=== PATIENT | male | born 1980 | race African-American/Black ===

== ENCOUNTER 2017-09-13 20:42 | Emergency (ER) | payer BC, OTHER ==
[2017-09-13] MEDS ORDERED: Ketorolac 60 MG/2 ML SDV IM ONE (21:11)
--- NOTE | 2017-09-13 21:11 | EDM.PDOC ---
ED HPI GENERAL MEDICAL PROBLEM - General Chief Complaint: Back Pain or Injury Stated Complaint: HURT BACK AND ELBOW Time Seen by Provider: 09/13/17 20:54 Source of Information: Reports: Patient History Limitations: Reports: No Limitations - History of Present Illness INITIAL COMMENTS - FREE TEXT/NARRATIVE: HISTORY AND PHYSICAL: History of present illness: 37-year-old male presenting in numerous department with chief complaint of lower back pain after fall. Patient states that he was standing with his hands bracing himself on a fence behind him talking to a friend who is also in the emergency department. States that fence gave way and both fell approximately 3-4 feet off a ledge. Patient states he primarily landed on his butt then hit the back of his head on the ground. He did not lose consciousness and has not had any kind of head or neck pain. He did scrape the back of his right elbow. He is complaining primarily of lumbar pain that radiates down into his right lower extremity not past the knee. Denies any bowel or bladder incontinence. Denies any chest pain, palpitations, shortness of breath, syncopal episodes, focal neurologic deficits. Patient is generally healthy and only takes Zantac for occasional GERD. Review of systems: As per history of present illness and below otherwise all systems reviewed and negative. Past medical history: As per history of present illness and as reviewed below otherwise noncontributory. Surgical history: As per history of present illness and as reviewed below otherwise noncontributory. Social history: No reported history of drug or alcohol abuse. Family history: As per history of present illness and as reviewed below otherwise noncontributory. Physical exam: HEENT: Atraumatic, normocephalic, pupils reactive, negative for conjunctival pallor or scleral icterus, mucous membranes moist, throat clear, neck supple, nontender, trachea midline. Lungs: Clear to auscultation, breath sounds equal bilaterally, chest nontender. Heart: S1S2, regular, negative for clicks, rubs, or JVD. Abdomen: Soft, nondistended, nontender. Negative for masses or hepatosplenomegaly. Negative for costovertebral tenderness. Pelvis: Stable nontender. Genitourinary: Deferred. Rectal: Deferred. Extremities: Atraumatic, negative for cords or calf pain. Neurovascular unremarkable. Neuro: Awake, alert, oriented. Cranial nerves II through XII unremarkable. Cerebellum unremarkable. Motor and sensory unremarkable throughout. Exam nonfocal. Back: Tenderness to palpation lupe T10-S1 as well as paraspinal primarily on right with no step-off or focal neurlogic deficits Diagnostics: Thoracic, lumbar x-ray Therapeutics: 60 mg IM Toradol, Tdap Impression: Lumbar contusion Plan: Lumbar as well as thoracic x-rays were negative for any acute osseous abnormalities. Patient had good relief with IM Toradol. He was discharged in good condition with instructions to take Tylenol or ibuprofen for pain and inflammation. He should also rest the area as well as use ice. I did give him a prescription for Flexeril for muscle spasms. I also recommended that he follow- up with a primary care physician and gave him information on that. If he has any new or worse symptoms he should return to emergency department immediately. Lower Back Pain Score (Numeric/FACES): 9 - Related Data Allergies Allergy/AdvReac Type Severity Reaction Status Date / Time No Known Allergies Allergy Verified 09/13/17 21:07 Home Meds: Home Meds Ranitidine [Zantac] 75 mg PO BID PRN 09/13/17 [History] Past Medical History - Past Health History Medical/Surgical History: Denies Medical/Surgical History ED ROS GENERAL - Review of Systems Review Of Systems: ROS reveals no pertinent complaints other than HPI. ED EXAM, GENERAL - Physical Exam Exam: See Below Course - Vital Signs Last Recorded V/S: Last Vital Signs Temp 98.3 F 09/13/17 21:08 Pulse 83 09/13/17 21:08 Resp 16 09/13/17 21:08 BP 121/84 09/13/17 21:08 Pulse Ox 98 09/13/17 21:08 - Orders/Labs/Meds Orders: Active Orders 24 hr Category Date Time Status Vaccines to be Administered [RC] PER UNIT ROUTINE Care 09/13/17 22:09 Active Lumbar Spine 2 or 3V [CR] Stat Exams 09/13/17 21:12 Taken Thoracic Spine 3V [CR] Stat Exams 09/13/17 21:12 Taken Meds: Medications Discontinued Medications Generic Name Dose Route Start Last Admin Trade Name Freq PRN Reason Stop Dose Admin Diphtheria/Tetanus/Acell Pertussis 0.5 ml 09/13/17 22:09 Adacel IM 09/13/17 22:10 .ONCE ONE Ketorolac Tromethamine 60 mg 09/13/17 21:11 09/13/17 22:05 Toradol IM 09/13/17 21:12 60 mg ONETIME ONE Administration Departure - Departure Time of Disposition: 22:19 Disposition: Home, Self-Care 01 Condition: Good Clinical Impression: Lumbar contusion Qualifiers: Encounter type: initial encounter Qualified Code(s): S30.0XXA - Contusion of lower back and pelvis, initial encounter - Discharge Information Referrals: PCP,None [Primary Care Provider] - Forms: ED Department Discharge Additional Instructions: My general discharge The following information is given to patients seen in the emergency department who are being discharged to home. This information is to outline your options for follow-up care. We provide all patients seen in our emergency department with a follow-up referral. The need for follow-up, as well as the timing and circumstances, are variable depending upon the specifics of your emergency department visit. If you don't have a primary care physician on staff, we will provide you with a referral. We always advise you to contact your personal physician following an emergency department visit to inform them of the circumstance of the visit and for follow-up with them and/or the need for any referrals to a consulting specialist. The emergency department will also refer you to a specialist when appropriate. This referral assures that you have the opportunity for follow-up care with a specialist. All of these measure are taken in an effort to provide you with optimal care, which includes your follow-up. Under all circumstances we always encourage you to contact your private physician who remains a resource for coordinating your care. When calling for follow-up care, please make the office aware that this follow-up is from your recent emergency room visit. If for any reason you are refused follow-up, please contact the [facility] Emergency Department at and asked to speak to the emergency department charge nurse. [facility] [address] [place] [id number] [address] Please call 1 of the numbers above to schedule a appointment for follow-up from the ER and to establish care with a primary care provider. May take Tylenol for pain. Rest the area and use ice 15 minutes on 15 minutes off. Take Flexeril as prescribed. Return to the emergency department if any new or worsening symptoms. - My Orders Last 24 Hours: My Active Orders 09/13/17 21:12 Lumbar Spine 2 or 3V [CR] Stat Thoracic Spine 3V [CR] Stat 09/13/17 22:09 Vaccines to be Administered [RC] PER UNIT ROUTINE - Assessment/Plan Last 24 Hours: My Active Orders 09/13/17 21:12 Lumbar Spine 2 or 3V [CR] Stat Thoracic Spine 3V [CR] Stat 09/13/17 22:09 Vaccines to be Administered [RC] PER UNIT ROUTINE
[2017-09-13] MEDS ORDERED: Diphtheria,Pertussis(Acell),Tetanus Vaccine 0.5 ML Syringe IM ONE (22:09)
--- NOTE | 2017-09-14 15:22 | CR ---
EXAM DATE: 09/13/17 PATIENT'S AGE: 37 Patient: YULISSA PINEDA Facility: [place], [place] Site . Site : 1980 Study: XRay Spine Lumbar [id number]/3/2018 9:55:24 PM Ordering Physician: Cornelio Cox Final Report: INDICATION: Fall from <5ft, general back pain since TECHNIQUE: Lumbar spine 3 views. COMPARISON: None. FINDINGS: Bones: Alignment is normal. No fractures or bone lesions. Joint spaces: Disc spaces are normal. Facet joints are normal. Soft tissues: Negative. IMPRESSION: Negative lumbar spine. Dictated by: Ludin Dent MD @ 09/13/2017 22:11:22 (Electronic Signature) Report Signed by Proxy. JOSLYN
--- NOTE | 2017-09-14 15:23 | CR ---
EXAM DATE: 09/13/17 PATIENT'S AGE: 37 Patient: YULISSA PINEDA Facility: [place], [place] Site . Site : 1980 Study: XRay Spine Thoracic [id number]/3/2018 9:58:40 PM Ordering Physician: Cornelio Cox Final Report: INDICATION: fall TECHNIQUE: Thoracic spine 3 views. COMPARISON: None. FINDINGS: Bones: Alignment is normal. No fractures or bone lesions. Joint spaces: Disc spaces are normal. Facet joints are normal. Soft tissues: Negative. IMPRESSION: Negative thoracic spine. Dictated by: Ludin Dent MD @ 09/13/2017 22:09:05 (Electronic Signature) Report Signed by Proxy. JOSLYN
== END 2017-09-13 22:28 | disposition home or self-care (01) ==
LOC: MW.ED 20:42
DX: S30.0XXA Contusion of lower back and pelvis, initial encounter (principal); W17.89XA Other fall from one level to another, initial encounter; Z79.899 Other long term (current) drug therapy
CPT/HCPCS: 72072; 72100; 90471; 90715; 96372; 99283; J1885

== ENCOUNTER 2020-01-27 10:28 | Emergency (ER) | payer BC, OTHER ==
--- NOTE | 2020-01-27 10:43 | EDM.PDOC ---
ED HPI GENERAL MEDICAL PROBLEM - General Stated Complaint: BODY ACHES/DIFFICULTY BREATHING/CHEST PAIN Time Seen by Provider: 01/27/20 10:41 Source of Information: Reports: Patient History Limitations: Reports: No Limitations - History of Present Illness INITIAL COMMENTS - FREE TEXT/NARRATIVE: HISTORY AND PHYSICAL: History of present illness: Patient is a 39-year-old male who presents to the emergency room with complaints of a 1 week history of cough, intermittent shortness of breath, body aches and subjective fevers. He reports he is here to "get a checkup" as he is concerned his symptoms have not been alleviated. Currently does have concerns of COVID-19 as he has multiple roommates and exposures while at work. He also states he is not able to taste his food but denies any change in oral intake. Patient denies any headache, change in vision, syncope or near syncope. Denies any chest pain, back pain, abdominal pain, nausea, vomiting, diarrhea, constipation or dysuria. Has not noted any blood in urine or stool. Review of systems: As per history of present illness and below otherwise all systems reviewed and negative. Past medical history: As per history of present illness and as reviewed below otherwise noncontributory. Surgical history: As per history of present illness and as reviewed below otherwise noncontributory. Social history: See social history for further information Family history: As per history of present illness and as reviewed below otherwise noncontributory. Physical exam: General: Well developed and well nourished. Alert and orientated x 3. Nontoxic in appearance and in no acute distress. Vital signs are stable and have been reviewed by me. Nursing notes were reviewed. HEENT: Atraumatic, normocephalic, pupils equal and reactive bilaterally, ne gative for conjunctival pallor or scleral icterus, mucous membranes moist, TMs normal bilaterally, throat clear, neck supple, nontender, trachea midline. No drooling or trismus noted. No meningeal signs. No hot potato voice noted. Lungs: Clear to auscultation, breath sounds equal bilaterally, chest nontender. Normal work of breathing, no accessory muscles used. Heart: S1S2, regular rate and rhythm without overt murmur Abdomen: Soft, nondistended, nontender. Negative for masses or hepatosplenomegaly. Negative for costovertebral tenderness. Skin: Intact, warm, dry. No lesions or rashes noted. Hematologic: No petechiae or purpra. Mucosa appropriate color and normal nail bed color and refill. Extremities: Atraumatic, moves all extremities per self without difficulty or deficits, negative for cords or calf pain. Neurovascular unremarkable. Neuro: Awake, alert, oriented. Cranial nerves II through XII unremarkable. Cerebellum unremarkable. Motor and sensory unremarkable throughout. Exam nonf ocal. Psychiatric: Mood and affect are appropriate. Normal thought process. Answering questions appropriately. Notes: Chest x-ray is unremarkable. Tested positive for COVID-19. I have spoken with the patient/caregiver and discussed today's findings, in addition to providing specific details for plan of care. Reassessment at the time of disposition demonstrates that the patient is in no acute distress. The patient has remained stable throughout the entire ED visit and is without objective evidence for acute process requiring urgent intervention or hospitalization. The patient is stable for discharge, counseling was provided and we discussed in great detail signs and symptoms that would prompt them to return to the Emergency Department. Medication, follow up and supportive care measures were reviewed and discussed. Voices understanding and is agreeable to plan of care. Denies any further questions or concerns at this time. Diagnostics: Chest x-ray, coronavirus Therapeutics: None Prescription: None Impression: COVID-19 Plan: 1. Your COVID-19 screening is positive. That means you do have the coronavirus and are considered contagious. Your vital signs and oxygen saturation are well enough that you were able to monitor your symptoms at home. Continue to monitor for trouble breathing, new confusion or inability to arouse, bluish lips or face or any of the other symptoms we discussed -if this occurs please return to the emergency room. 2. Please self quarantine over the next 2 weeks. Inform any persons that you have been in contact with since you started becoming symptomatic that you have tested positive; they should be made aware and take the appropriate steps as needed. 3. Take the medications as we prescribed as discussed. You can take NyQuil during the evening to help get a restful night sleep. 4. You may alternate Tylenol and ibuprofen as needed for pain and fever management. 5. [facility] you and following up with you. The [place] COVID 19 Hotline phone number , They are open Thursday - Thursday 7am - 7pm. Follow up with your primary care provider for re-evaluation and re-testing after the 2 week quarantine and discuss when you should be seen. Definitive disposition and diagnosis as appropriate pending reevaluation and review of above. inspiratory breath Pain Score (Numeric/FACES): 5 - Related Data Allergies Allergy/AdvReac Type Severity Reaction Status Date / Time No Known Allergies Allergy Verified 01/27/20 10:45 Home Meds: Home Meds . [No Known Home Meds] 01/27/20 [History] Past Medical History - Past Health History Medical/Surgical History: Denies Medical/Surgical History - Infectious Disease History Infectious Disease History: Reports: Chicken Pox Social & Family History - Family History Family Medical History: Noncontributory - Caffeine Use Caffeine Use: Reports: Tea ED ROS GENERAL - Review of Systems Review Of Systems: Comprehensive ROS is negative, except as noted in HPI. ED EXAM, GENERAL - Physical Exam Exam: See Below (See dictation) Course - Vital Signs Last Recorded V/S: Last Vital Signs Temp 97.3 F 01/27/20 10:41 Pulse 97 01/27/20 10:41 Resp 16 01/27/20 10:41 BP 127/76 01/27/20 10:41 Pulse Ox 97 01/27/20 10:41 - Orders/Labs/Meds Orders: Active Orders 24 hr Category Date Time Status CORONAVIRUS COVID-19 PCR PHL Stat Lab 01/27/20 11:16 Received Labs: Laboratory Tests 01/27/20 Range/Units 11:16 SARS CoV-2 RNA Rapid KIRAN POSITIVE H (NEGATIVE) Departure - Departure Time of Disposition: 11:39 Disposition: Home, Self-Care 01 Clinical Impression: COVID-19 - Discharge Information Instructions: COVID-19 Referrals: PCP,None [Primary Care Provider] - Additional Instructions: The following information is given to patients seen in the emergency department who are being discharged to home. This information is to outline your options for follow-up care. We provide all patients seen in our emergency department with a follow-up referral. The need for follow-up, as well as the timing and circumstances, are variable depending upon the specifics of your emergency department visit. If you don't have a primary care physician on staff, we will provide you with a referral. We always advise you to contact your personal physician following an emergency department visit to inform them of the circumstance of the visit and for follow-up with them and/or the need for any referrals to a consulting specialist. The emergency department will also refer you to a specialist when appropriate. This referral assures that you have the opportunity for follow-up care with a specialist. All of these measure are taken in an effort to provide you with optimal care, which includes your follow-up. Under all circumstances we always encourage you to contact your private physician who remains a resource for coordinating your care. When calling for follow-up care, please make the office aware that this follow-up is from your recent emergency room visit. If for any reason you are refused follow-up, please contact the [facility] Emergency Department at and asked to speak to the emergency department charge nurse. [facility] [address] [place] [id number] [id number] Thank you for choosing the [facility] emergency department in [place] for your medical needs today. It was a pleasure caring for you. Today you were seen in the emergency department for respiratory symptoms. 1. Your COVID-19 screening is positive. That means you do have the coronavirus and are considered contagious. Your vital signs and oxygen saturation are well enough that you were able to monitor your symptoms at home. Continue to monitor for trouble breathing, new confusion or inability to arouse, bluish lips or face or any of the other symptoms we discussed -if this occurs please return to the emergency room. 2. Please self quarantine over the next 2 weeks. Inform any persons that you have been in contact with since you started becoming symptomatic that you have tested positive; they should be made aware and take the appropriate steps as ne eded. 3. Take the medications as we prescribed as discussed. You can take NyQuil during the evening to help get a restful night sleep. 4. You may alternate Tylenol and ibuprofen as needed for pain and fever management. 5. [facility] you and following up with you. The [place] COVID 19 Hotline phone number , They are open Thursday - Thursday 7am - 7pm. Follow up with your primary care provider for re-evaluation and re-testing after the 2 week quarantine and discuss when you should be seen. Sepsis Event Note (ED) - Focused Exam Vital Signs: Vital Signs Temp Pulse Resp BP Pulse Ox 01/27/20 10:41 97.3 F 97 16 127/76 97 - My Orders Last 24 Hours: My Active Orders 01/27/20 11:16 CORONAVIRUS COVID-19 PCR PHL Stat - Assessment/Plan Last 24 Hours: My Active Orders 01/27/20 11:16 CORONAVIRUS COVID-19 PCR PHL Stat
--- NOTE | 2020-01-27 11:41 | CR ---
INDICATION: Cough, shortness of breath. COMPARISON: None. TECHNIQUE: 2 view chest. FINDINGS: No focal consolidation, pleural effusion, or pneumothorax. Normal heart size and pulmonary vascularity. Probable calcified left hilar lymph node. The bones are unremarkable. IMPRESSION: No acute cardiopulmonary findings. Dictated by Dana Barriga MD @ Jan 27 2020 11:37AM Signed by Dr. Dana Barriga @ Jan 27 2020 11:40AM
== END 2020-01-27 11:50 | disposition home or self-care (01) ==
LOC: MW.ED 10:28
DX: U07.1 COVID-19 (principal)
CPT/HCPCS: 71046; 71046-26; 99283; 99285-25; U0002